=== PATIENT | male | born 1980 | race Caucasian/White ===

== ENCOUNTER 2018-08-21 04:53 | Emergency (ER) | payer MEDICAID, OTHER ==
[~2018-08-21] VITALS: Ht 162.6 cm; Wt 57.0 kg
[2018-08-21 04:56] VITALS: BP 118/74; PULSE 101; RESP 20; Ht 162.6 cm; Wt 57.0 kg
[2018-08-21] MEDS ORDERED: ONDANSETRON (ODT) 4 MG TAB ODT STA (05:35)
--- NOTE | 2018-08-21 05:35 | ERD ---
ER Documentation Chief Complaint Chief Complaint BODY ACHES HPI This is a 38-year-old male who presents here in emergency department with complaints of generalized body ache, throat pain for about 3 days, coughing for about 2 days. Denies headache, head injury, loss of consciousness, dizziness, neck pain, neck stiffness, throat pain, difficulty swallowing, difficulty breathing lying flat, shoulder pain, chest pain, back pain, abdominal pain, nausea, vomiting, constipation, diarrhea, urinary symptoms, loss of bowel and bladder control, trauma, injury, falls, difficulty walking due to pain, numbness or tingling sensation, calf pain, recent travel, recent major surgery in the last 3 weeks, calf pain, recent long travel, recent exposure to any illness, recent antibiotic use in the last 3 months, fever, chills, seizures. Past medical history: Surgical history: Social: Denies smoking, use of alcoholic beverages, use of illegal drugs. ROS All systems reviewed and are negative except as per history of present illness. Medications Home Meds Active Scripts Benzonatate* (Tessalon Perle*) 100 Mg Capsule, 100 MG PO Q8H PRN for COUGH, #20 CAP Prov:PASILABANELIANAAR F 08/21/18 Ibuprofen* (Motrin*) 600 Mg Tab, 600 MG PO Q6H PRN for PAIN AND OR ELEVATED TEMP, #30 TAB Prov:PASILABANCAROLINA F 08/21/18 Ondansetron Hcl* (Zofran*) 4 Mg Tablet, 4 MG PO Q8H PRN for NAUSEA AND/OR VOMITING, #30 TAB Prov:PASILABANCAROLINA F 08/21/18 Amoxicillin/Potassium Clav (Amox-Clav 875-125 mg Tablet) 875-125 mg Tab, 1 TAB PO BID for 10 Days, #20 TAB Prov:PASILABANELIANAAR F 08/21/18 Allergies Allergies: Coded Allergies: No Known Allergy (Unverified , 06/30/12) PMhx/Soc Medical and Surgical Hx: pt denies Medical Hx, pt denies Surgical Hx History of Surgery: No Anesthesia Reaction: No Hx Neurological Disorder: No Hx Respiratory Disorders: No Hx Cardiac Disorders: No Hx Psychiatric Problems: No Hx Miscellaneous Medical Probl: No Hx Alcohol Use: No Hx Substance Use: No Hx Tobacco Use: No Smoking Status: Never smoker Physical Exam Vitals Physical Exam Const: No acute distress Head: Atraumatic Eyes: Normal Conjunctiva ENT: Normal External Ears, Nose and Mouth. Throat: Uvula is in midline and non-displaced. Tonsils are +2 with redness but no exudates. Tolerating secretions. There is frontal and maxillary sinus tenderness to palpation. Neck: Full range of motion. No meningismus. Resp: Clear to auscultation bilaterally Cardio: Regular rate and rhythm, no murmurs Abd: Soft, non tender, non distended. Normal bowel sounds Skin: No petechiae or rashes Back: No midline or flank tenderness Ext: No cyanosis, or edema Neur: Awake and alert. No neurological deficits. Psych: Normal Mood and Affect Results 24 hrs Current Medications Medications Dose Sig/Kody Start Time Status Last (Trade) Ordered Route PRN Stop Time Admin Dose Reason Admin Ondansetron 4 mg ONCE STAT 08/21/18 DC 08/21/18 HCl (Zofran ODT 05:35 05:42 Odt) 08/21/18 05:37 10 mg ONCE ONCE 08/21/18 DC 08/21/18 Dexamethasone IM 06:00 05:43 (Decadron) 08/21/18 06:01 Ibuprofen 800 mg ONCE ONCE 08/21/18 DC 08/21/18 (Motrin) PO 06:00 05:42 08/21/18 06:01 Procedures/MDM Diagnostic tests: Clinical exam. Treatment: Dexamethasone. Motrin. Zofran. Re-evaluation: Denies pain. No vomiting. Differential diagnosis I have low suspicion for sepsis, meningitis, mastoiditis, peritonsillar abscess. Final diagnosis: Tonsillitis. Bronchitis. Prescription: Augmentin. Tylenol. Motrin. Follow-up with PCP in the next 24-48 hours. Come back here in the emergency department for any new symptoms or any worsening symptoms. All questions and concerns were answered. Patient and family members verbalized understanding and agreed with plan of care. Hemodynamically stable on discharge. Departure Diagnosis: Primary Impression: Influenza-like symptoms Additional Impressions: Tonsillitis Sinusitis Condition: Stable Additional Instructions: Follow-up with PCP in the next 24-48 hours. Come back here in the emergency department for any new symptoms or any worsening symptoms. CAROLINA PENDLETON Aug 21, 2018 05:35
[2018-08-21] MEDS ORDERED: ONDA4TAB8 PO (05:37)
[2018-08-21] MEDS ORDERED: AMOX1TAB10 PO (05:37)
[2018-08-21] MEDS ORDERED: BENZ-6 PO (05:38)
[2018-08-21] MEDS ORDERED: IBUP-1542 PO (05:38)
[2018-08-21] MEDS ORDERED: IBUPROFEN 800 MG TAB PO ONE (06:00)
[2018-08-21] MEDS ORDERED: DEXAMETHASONE 10 MG/ML 1 ML INJ IM ONE (06:00)
== END 2018-08-21 05:56 | disposition home or self-care (01) ==
LOC: FTE 04:53
DX: J03.90 Acute tonsillitis, unspecified (principal); J32.9 Chronic sinusitis, unspecified
CPT/HCPCS: 96372; J1100; Z7502; Z7610

== ENCOUNTER 2018-10-17 11:35 | Emergency (ER) | payer OTHER ==
[~2018-10-17] VITALS: Ht 157.5 cm; Wt 55.5 kg
[~2018-10-17 11:35] MED LIST: AMOX1TAB10 PO; BENZ-6 PO; IBUP-1542 PO; ONDA4TAB8 PO
[2018-10-17 11:41] VITALS: BP 122/81; PULSE 85; RESP 19; Ht 157.5 cm; Wt 55.5 kg
[2018-10-17] MEDS ORDERED: ONDA4TAB14 PO (13:09)
[2018-10-17] MEDS ORDERED: LOPE2CAP PO (13:09)
--- NOTE | 2018-10-17 13:12 | ERD ---
ER Documentation Chief Complaint Chief Complaint DIARRHEA X 6 DAYS HPI 38-year-old male presenting with diarrhea times 6 days. Patient states he has had generalized body aches. Denies any bloody stool. Has not had any medicine today and denies fevers. He denies any recent travel or sick contacts. Denies medical problems. NKDA. Surgical history denies. Social history denies. Denies any vomiting. ROS All systems reviewed and are negative except as per history of present illness. Medications Home Meds Active Scripts Loperamide Hcl* (Imodium*) 2 Mg Capsule, 2 MG PO .WITH EACH DIARRHEA PRN for DIARRHEA, #30 CAP MAX 16 mg/day Prov:SALTY ROBLES PA-C 10/17/18 Ondansetron (Ondansetron Odt) 4 Mg Tab.rapdis, 4 MG PO Q6H PRN for NAUSEA AND/OR VOMITING, #10 TAB Prov:SALTY ROBLES PA-C 10/17/18 Benzonatate* (Tessalon Perle*) 100 Mg Capsule, 100 MG PO Q8H PRN for COUGH, #20 CAP Prov:PASILABANCAROLINA F 08/21/18 Ibuprofen* (Motrin*) 600 Mg Tab, 600 MG PO Q6H PRN for PAIN AND OR ELEVATED TEMP, #30 TAB Prov:CAROLINA PENDLETON F 08/21/18 Ondansetron Hcl* (Zofran*) 4 Mg Tablet, 4 MG PO Q8H PRN for NAUSEA AND/OR VOMITING, #30 TAB Prov:MIGUELANGELILACAROLINA KYLE F 08/21/18 Amoxicillin/Potassium Clav (Amox-Clav 875-125 mg Tablet) 875-125 mg Tab, 1 TAB PO BID for 10 Days, #20 TAB Prov:PASILAELIANA KYLEAR F 08/21/18 Allergies Allergies: Coded Allergies: No Known Allergy (Unverified , 06/30/12) PMhx/Soc History of Surgery: No Anesthesia Reaction: No Hx Neurological Disorder: No Hx Respiratory Disorders: No Hx Cardiac Disorders: No Hx Psychiatric Problems: No Hx Miscellaneous Medical Probl: No Hx Alcohol Use: No Hx Substance Use: No Hx Tobacco Use: No FmHx Family History: No diabetes, No coronary disease, No other Physical Exam Vitals Vital Signs Date Temp Pulse Resp B/P (MAP) Pulse Ox O2 O2 Flow FiO2 Time Delivery Rate 10/17/18 97.9 85 19 122/81 99 11:41 (95) Physical Exam GENERAL: The patient is well-appearing, well-nourished, in no acute distress HEENT: Atraumatic. Conjunctivae are pink. Pupils equal, round, and reactive to light. There is no scleral icterus. Tympanic membranes clear bilaterally. Oropharynx clear. NECK: C-spine is soft and supple. There is no meningismus. There is no cervical lymphadenopathy. CHEST: Clear to auscultation bilaterally. There are no rales, wheezes or rhonchi. HEART: Regular rate and rhythm. No murmurs, clicks, rubs or gallops ABDOMEN:Soft, nondistended. General tenderness to palpation with no focal exam. No rebound tenderness. No organomegaly. No distention Procedures/MDM MDM: 38-year-old male presenting with diarrhea. I believe patient likely has viral syndrome. Vitals are stable and patient exam is non-concerning. Patient did not have pain with jumping. I considered diverticulitis or acute abdominal emergency including but not limited to appendicitis or colitis however have low suspicion. I do not feel blood work or imaging is indicated. Patient is discharged with supportive medications and told to follow-up with primary care within 1-2 days for close evaluation. All questions answered at discharge Departure Diagnosis: Primary Impression: Diarrhea Condition: Stable Patient Instructions: Self-Care for Vomiting and Diarrhea Referrals: [facility] YOU HAVE RECEIVED A MEDICAL SCREENING EXAM AND THE RESULTS INDICATE THAT YOU DO NOT HAVE A CONDITION THAT REQUIRES URGENT TREATMENT IN THE EMERGENCY DEPARTMENT. FURTHER EVALUATION AND TREATMENT OF YOUR CONDITION CAN WAIT UNTIL YOU ARE SEEN IN YOUR DOCTORS OFFICE WITHIN THE NEXT 1-2 DAYS. IT IS YOUR RESPONSIBILITY TO MAKE AN APPOINTMENT FOR FOLOW-UP CARE. IF YOU HAVE A PRIMARY DOCTOR --you should call your primary doctor and schedule an appointment IF YOU DO NOT HAVE A PRIMARY DOCTOR YOU CAN CALL OUR PHYSICIAN REFERRAL HOTLINE AT IF YOU CAN NOT AFFORD TO SEE A PHYSICIAN YOU CAN CHOSE FROM THE FOLLOWING [facility] [address] [facility] [address] [facility] [address] [facility] [facility] [address] [facility]. [facility] [address] [facility]. [facility] [address] Additional Instructions: FOLLOW UP WITH YOUR PRIMARY CARE PHYSICIAN TOMORROW.Return to this facility if you are not improving as expected. SALTY ROBLES PA-C Oct 17, 2018 13:12
== END 2018-10-17 13:27 | disposition home or self-care (01) ==
LOC: FTE 11:35
DX: R19.7 Diarrhea, unspecified (principal)
CPT/HCPCS: 99283